=== PATIENT | female | born 1945 | race Caucasian/White ===

== ENCOUNTER 2023-06-09 11:52 | Outpatient (REF) | payer MEDICARE, SELFPAY ==
[2023-06-09 13:28] VITALS: BMI 24.5
[2023-06-09 13:29] VITALS: BP 143/70; PULSE 60; RESP 18; TEMP 36.3; O2SAT 96
== END 2023-06-09 11:53 | disposition home or self-care (01) ==
LOC: HO.MS 11:52
PROVIDERS: PCP Internal Medicine; Visit Provider Ophthalmology
PROC: (CPT 66821; principal; 2023-06-09 13:30)
DX: H26.492 Other secondary cataract, left eye (principal); I10 Essential (primary) hypertension
CPT/HCPCS: 66821